=== PATIENT | female | born 1990 | race Native Hawaiian/Other Pacific Islander ===

== ENCOUNTER 2021-12-24 08:13 | Day surgery (SDC) | payer BC ==
[~2021-12-24 08:13] MED LIST: Sensorcaine 0.25% 10 ML ONE
[2021-12-24] MEDS ORDERED: Pepcid 20 MG VIAL IV ONE ×2 (08:25→09:10)
[2021-12-24] MEDS ORDERED: Versed 2 MG/2 ML Injection IV ONE (08:25)
[2021-12-24] MEDS ORDERED: Transderm Scop 1.5MG Patch TOP PRN (08:26)
[2021-12-24] MEDS ORDERED: Reglan 10 MG/2 ML IV ONE (08:26)
[2021-12-24] MEDS ORDERED: Lactated Ringers 1,000 ML IV SCH (08:30)
--- NOTE | 2021-12-24 08:57 | HP ---
DATE OF SURGERY: 12/24/2021 HISTORY OF PRESENT ILLNESS: The patient is a 31-year-old female right upper quadrant pain for six months. Ultrasound no stones. HIDA ejection fraction 21%. Slight nausea. No jaundice. History of fatty liver. PAST MEDICAL HISTORY: Diabetes, hypothyroidism as well as gallbladder disease. PAST SURGICAL HISTORY: Esko teeth removed in the past. MEDICATIONS: Euthyrox, Super B-Complex, vitamin D3, Ozempic. ALLERGIES: NKDA. FAMILY HISTORY: Hypothyroidism, hypertension, diabetes. SOCIAL HISTORY: Denies smoking. Occasional alcohol use. REVIEW OF SYSTEMS: Fourteen systems reviewed. No chest pain or palpitations. Other systems negative or noncontributory as above and per preadmission questionnaire. PHYSICAL EXAMINATION: GENERAL: No acute distress. HEENT: Sclerae nonicteric. NECK: No JVD. CHEST: Equal excursion, nonlabored breathing. CVS: Regular rate and rhythm. ABDOMEN: Soft. No peritoneal signs. Mild right upper quadrant tenderness. EXTREMITIES: No significant edema. NEURO: Alert, oriented, moving extremities symmetrically. SKIN: Dry. PSYCH: Appropriate mood and affect. IMPRESSION: Acute exacerbation of chronic cholecystitis, symptomatic biliary dyskinesia. I feel the patient will benefit from cholecystectomy. Risks and benefits explained in detail. Shown the gallbladder pamphlet. Risks explained in detail including but not limited to bleeding or infection, risk of trocar injury or hernia, risk of bowel, bladder or blood vessel injury, risk of bile leak, bile duct injury, retained stone or sludge possibly requiring further procedure either open or ERCP, general risk of anesthesia, deep venous thrombosis, pulmonary embolism, pneumonia, perioperative risk of aches, pains, bloating, constipation and/or loose stools possibly even chronic in nature, possibility of no improvement of preoperative symptoms possibly requiring further work up, endoscopy or other studies or procedures. She understands and agrees to the planned procedure, will proceed with laparoscopic cholecystectomy with possible open as an outpatient.
[2021-12-24] MEDS ORDERED: MEFOXIN 2 GM PREMIX** 2 GM/50 ML ML IV SCH (09:00)
[2021-12-24] MEDS ORDERED: Versed 2 MG/2 ML Injection ONE (09:10)
[2021-12-24] MEDS ORDERED: MEFOXIN 2 GM PREMIX** 2 GM/50 ML ML IV ONE (09:10)
[2021-12-24] MEDS ORDERED: Lactated Ringers 1,000 ML IV ONE ×2 (09:11→11:48)
[2021-12-24] MEDS ORDERED: Transderm Scop 1.5MG Patch ONE ×2 (09:11→09:35)
[2021-12-24] MEDS ORDERED: Reglan 10 MG/2 ML ONE (09:11)
[2021-12-24] MEDS ORDERED: Zemuron 100 MG/10 ML ONE ×2 (10:14→12:28)
[2021-12-24] MEDS ORDERED: Quelicin Fliptop 200 MG/10 ML ONE (10:14)
[2021-12-24] MEDS ORDERED: Decadron 4 MG INJ ONE (10:14)
[2021-12-24] MEDS ORDERED: Zofran 4 MG/2 ML VIAL ONE ×2 (10:14→13:24)
[2021-12-24] MEDS ORDERED: DIPRIVAN 200 MG/20 ML IV ONE (10:14)
[2021-12-24] MEDS ORDERED: Xylocaine-Mpf 2% 5 Ml Vial ONE (10:14)
[2021-12-24] MEDS ORDERED: SUBLIMAZE 100 MCG/2 ML ONE ×3 (10:15→12:49)
[2021-12-24] MEDS ORDERED: DEXMEDETOMIDINE 80 MCG/20ML-NS IV ONE (10:17)
[2021-12-24] MEDS ORDERED: Pre-Attached Lta Kit TP ONE (10:24)
[2021-12-24] MEDS ORDERED: OFIRMEV 100 ML IV ONE (11:30)
[2021-12-24] MEDS ORDERED: TRANDATE 20 MG/4 ML SYRINGE IV ONE (12:09)
[2021-12-24] MEDS ORDERED: BRIDION 200MG/2ML IV ONE (12:21)
[2021-12-24] MEDS ORDERED: MORPHINE SULFATE 4 MG INJ IV PRN (13:22)
[2021-12-24] MEDS ORDERED: Zofran 4 MG/2 ML VIAL IV ONE (13:24)
[2021-12-24] MEDS ORDERED: MORPHINE SULFATE 4 MG INJ ONE (13:25)
[2021-12-24 13:32] VITALS: O2SAT 97
--- NOTE | 2021-12-24 13:43 | OP ---
SURGERY DATE/TIME: 12/24/2021 1130 PREOPERATIVE DIAGNOSIS: Acute exacerbation of chronic cholecystitis, symptomatic biliary dyskinesia. POSTOPERATIVE DIAGNOSIS: Acute exacerbation of chronic cholecystitis, symptomatic biliary dyskinesia. PROCEDURE: Laparoscopic cholecystectomy. SURGEON: Dr. Angel Yeager. ANESTHESIA: General. ESTIMATED BLOOD LOSS: Minimal. INDICATIONS: As noted above. Risks and benefits explained in detail but not limited to and consent obtained. DESCRIPTION OF PROCEDURE AND FINDINGS: The patient was taken to the operating room. General anesthesia induced. Abdomen prepped and draped in usual sterile fashion. After official time out and no disagreement with planned procedure, An 11 mm bladeless port and camera were inserted without difficulty but giving her thickness the port barely reached the fascia and sliding down a little bit because of her girth. I was able to get the port in. Pneumoperitoneum accomplished. Which we are waiting for some tubing. Two - 5 mm right upper quadrant ports, 5 mm epigastric port. The gallbladder was retracted, had some mild chronic inflammation. Dissection carried posterior, lateral to anterior fashion slowly and carefully cystic duct infundibular junction slowly and carefully well skeletonized until critical view obtained anteriorly and posteriorly. Once this is accomplished, cystic duct and cystic artery clipped x3 and divided in the usual fashion. The gallbladder is slowly and carefully dissected free from its attachments. Just prior to releasing from final attachments to anterior edge of liver, the liver bed re-inspected. Clips noted in place in cystic duct and cystic artery stumps. No signs of any active bleeding or bile leakage. It was felt there is no benefit from drain placement. Gallbladder released from final attachments, placed in a bag and pulled up with the fascia spread slightly the umbilical site incision allowing the gallbladder to be pulled up to decompress the bile. Gallbladder and bag pulled free and passed off. Fascia defect closed with puncture closure device with #1 Vicryl under direct vision of the camera. Liver bed re-inspected. Good hemostasis noted. Irrigation accomplished lateral to the liver irrigating clear. Pneumoperitoneum decompressed. Skin incision closed with 4-0 Vicryl. The 12/11 fascial defect closed with puncture closure device #1 Vicryl. Steri-Strips and sterile dressing applied. 0.25% Marcaine local injected along the skin incision fascial defect. The patient tolerated the procedure well. Findings discussed with the family out in the waiting area.
[2021-12-24 13:56] VITALS: BP 110/78; PULSE 85
== END 2021-12-24 14:10 | disposition home or self-care (01) ==
LOC: SDC 08:13
PROVIDERS: ATTEND Surgery
DX: K81.1 Chronic cholecystitis (principal); E11.9 Type 2 diabetes mellitus without complications
CPT/HCPCS: 81025; 82947; J0330; J0694; J1100; J2250; J2270; J2405; J2704; J3010; A9270-GY

== ENCOUNTER 2022-08-12 14:47 | Emergency (ER) | payer BC ==
[2022-08-12 15:28] VITALS: O2SAT 98
--- NOTE | 2022-08-12 15:33 | ERPHSYRPT ---
- History of Present Illness Source: patient Exam Limitations: no limitations Patient Subjective Stated Complaint: C/O intermittent vaginal bleeding that started at 2pm yesterday. She had one episode around 2pm yesterday and then another episode around 2pm today. Bleeding is bright red, small amount. No pain or cramping today. Patient states mild cramping yesterday to LLQ of abdomen. Patient had sexual intercoarse on Friday afternoon. Triage Nursing Assessment: Patient ambulated back to ER without difficulties. She is alert and oriented. No SOB. OB doctor is Dr. Martines. Heart Rate obtained with hand held: rate 188. Physician History: [id number] WF 19 wks w vaginal spotting x 1 day. Pt denies supra-pubic pain/N/V/fever/dysuria/hematuria. Timing/Duration: yesterday Activites at Onset: sexual activity (Had intercourse 2 days ago) Pain Radiation: none Severity of Pain-Max: none Severity of Pain-Current: none Modifying Factors: Improves With: nothing Associated Symptoms: denies symptoms Allergies/Adverse Reactions: No Known Drug Allergies Allergy (Verified 08/12/22 15:11) Home Medications: Levothyroxine Sodium [Euthyrox] 75 mcg PO DAILY 11/27/21 [History] Vit 93/Iron Fum/Folic [ Formula Tablet] 1 tab PO DAILY 08/12/22 [History] Hx Tetanus, Diphtheria Vaccination/Date Given: Yes Hx Influenza Vaccination/Date Given: Yes Hx Pneumococcal Vaccination/Date Given: No Travel Risk - International Travel Have you traveled outside of the country in past 3 weeks: No - Coronavirus Screening Are you exhibiting any of the following symptoms?: No Close contact with a COVID-19 positive Pt in past 14-21 Days: No - Vaccine Status Have you recieved a Covid-19 vaccination: Yes Candy Puller: [place] - Vaccination Dates Date of 2cond Vaccination (if applicable): ? - Review of Systems Constitutional: No Symptoms Eyes: No Symptoms Ears, Nose, & Throat: No Symptoms Respiratory: No Symptoms Cardiac: No Symptoms Abdominal/Gastrointestinal: No Symptoms Musculoskeletal: No Symptoms Skin: No Symptoms Neurological: No Symptoms Psychological: No Symptoms Endocrine: No Symptoms Hematologic/Lymphatic: No Symptoms Immunological/Allergic: No Symptoms - Past Medical History Pertinent Past Medical History: Yes Neurological History: No Pertinent History ENT History: No Pertinent History Cardiac History: No Pertinent History Respiratory History: No Pertinent History Endocrine Medical History: Diabetes Type II, Hypothyroidism Musculoskeletal History: No Pertinent History GI Medical History: Gallbladder Disease History: No Pertinent History Psycho-Social History: No Pertinent History Female Reproductive Disorders: No Pertinent History - Past Surgical History Past Surgical History: Yes Neuro Surgical History: No Pertinent History Cardiac: No Pertinent History Respiratory: No Pertinent History Gastrointestinal: Cholecystectomy Genitourinary: No Pertinent History Musculoskeletal: No Pertinent History Female Surgical History: No Pertinent History Other Surgical History: oral surgery wisdom teeth removal - Social History Smoking Status: Never smoker Exposure to second hand smoke: No Drug Use: none Patient Lives Alone: No - Female History Hx Last Menstrual Period: End march Hx Now: Yes Gestational Age: 19 w & 4d - Nursing Vital Signs Nursing Vital Signs: Initial Vital Signs Pulse Rate 105 H 08/12/22 15:10 Respiratory Rate 15 08/12/22 15:10 Blood Pressure 115/79 08/12/22 15:10 O2 Sat by Pulse Oximetry 97 08/12/22 15:10 Pain Scale Pain Intensity 0 Mildly tachy - Physical Exam General Appearance: no apparent distress Eye Exam: PERRL/EOMI, eyes nml inspection Ears, Nose, Throat Exam: normal ENT inspection, TMs normal, pharynx normal, moist mucous membranes Neck Exam: normal inspection, non-tender, supple, full range of motion, No meningismus, No mass, No Brudzinski, No Kernig's, No carotid bruit Respiratory Exam: normal breath sounds, lungs clear, airway intact Cardiovascular Exam: murmur (2/6 CHRISTEN), tachycardia (Mild) Gastrointestinal/Abdomen Exam: soft, normal bowel sounds, No tenderness Back Exam: normal inspection, normal range of motion, No CVA tenderness, No vertebral tenderness Extremity Exam: normal inspection, normal range of motion Neurologic Exam: alert, oriented x 3, cooperative, caser up II-XII nml as tested, normal mood/affect, nml cerebellar function, nml station & gait, sensation nml Skin Exam: normal color, warm, dry Lymphatic Exam: No adenopathy SpO2 Interpretation: normal SpO2: 98 O2 Delivery: Room Air - Course Nursing assessment & vital signs reviewed: Yes - Radiology Ultrasound Exam Other Ultrasound: Other (Normal 19wk IUP per tech/IUP in breech position/FHR 161/) Ordered Tests: Active Orders 24 hr Category Date Time Status OB LIMITED [US] Stat Exams 08/12/22 15:18 Completed UA W/RFX UR CULTURE Stat Lab 08/12/22 15:05 Completed Lab/Rad Data: Laboratory Results 08/12/22 Range/Units 15:05 Urine Color Yellow (Yellow) Urine Appearance Clear (Clear) Urine pH 5.5 (4.6-8.0) Ur Specific Albright >=1.030 A (1.005-1.030) Urine Protein Trace A (Negative) Urine Glucose (UA) Negative (Negative) mg/dL Urine Ketones Negative (Negative) Urine Blood Negative (Negative) Urine Nitrite Negative (Negative) Urine Bilirubin Negative (Negative) Urine Urobilinogen 1.0 A (0.2) mg/dL Ur Leukocyte Esterase Negative (Negative) U Hyaline Cast (Auto) NONE SEEN (0-2) /LPF Urine Microscopic RBC 0-2 (0-5) /HPF Urine Microscopic WBC 0-2 (0-5) /HPF Ur Epithelial Cells None Seen (None Seen) /HPF Urine Bacteria None Seen (None Seen) /HPF Urine Culture Reflexed NO (NO) - Progress Progress Note: 08/12/22 18:34 Nursing note and vital signs reviewed No food or housing insecurities noted US result per tech and Dr. Lozada read later reviewed/Results shared w pt Pt in NAD and discharged to f/u w Dr. Martines 08/12/22 18:36 Counseled pt/family regarding: diagnosis, need for follow-up, rad results Medical Desision Making - Diagnostic Testing Radiological Interpretation: Reviewed by me, Discussed w/ radiologist - Risk of complications Low Risk: Low risk of morbidity from additional dx testing or treatment - Departure Departure Disposition: Home Clinical Impression: Vaginal bleeding before 22 weeks gestation Condition: Stable Critical Care Time: No Referrals: LIA MARTINES MD [Primary Care Provider] - Follow up/PCP as directed Instructions: Bleeding in Early (DC) Additional Instructions: Follow up with Dr. Martines Return to ER as needed
[2022-08-12 16:11] LABS: ADD URINE CULTURE? NO (NO); Appearance Clear (Clear); Bacteria None Seen /HPF (None Seen); Bilirubin Negative (Negative); Blood Negative (Negative); Epithelial Cells None Seen /HPF (None Seen); Glucose, Urine Negative (Negative); Hyaline Casts NONE SEEN /LPF (0-2); Ketones Negative (Negative); Leukocyte Esterase Negative (Negative); Nitrite Negative (Negative); Ph 5.5 (4.6-8.0); Protein,Urine Dip Trace (Negative); RBC 0-2 /HPF (0-5); Specific Gravity >=1.030 (1.005-1.030); WBC 0-2 /HPF (0-5)
[2022-08-12 16:15] VITALS: BP 123/76; PULSE 97
--- NOTE | 2022-08-12 16:32 | XRAY ---
Indication: Vaginal bleeding. Cervical length and GEORGIE. Limited OB ultrasound demonstrates single intrauterine currently in breech presentation with heart rate 161 BPM. Four-quadrant GEORGIE is 10.0 cm. Cervical length is 4.3 cm.
== END 2022-08-12 16:20 | disposition home or self-care (01) ==
LOC: ED 14:47
DX: O20.9 Hemorrhage in early pregnancy, unspecified (principal); Z3A.19 19 weeks gestation of pregnancy; O24.112 Pre-existing type 2 diabetes mellitus, in pregnancy, second trimester; Z79.899 Other long term (current) drug therapy
CPT/HCPCS: 76815; 81001; 99283

== ENCOUNTER 2022-08-15 14:36 | Observation (INO) | payer BC ==
[2022-08-15 16:11] VITALS: BP 116/67; PULSE 108; O2SAT 97
[2022-08-15 18:36] LABS: CHLAMYDIA DNA NOT DETECTED (NEGATIVE); GC DNA Probe NOT DETECTED (NEGATIVE)
== END 2022-08-15 16:52 | disposition home or self-care (01) ==
LOC: ED 14:36 → OB 14:50 → UNDOADMOB 14:50 → UNDODISOB 16:52
PROVIDERS: ADMIT Family Medicine; ATTEND Family Medicine
DX: Z34.02 Encounter for supervision of normal first pregnancy, second trimester (principal); Z3A.20 20 weeks gestation of pregnancy
CPT/HCPCS: 87491; 87591; 99281; G0378; G0379

== ENCOUNTER 2023-01-01 08:05 | Inpatient (IN) | payer BC ==
[2023-01-01] MEDS ORDERED: PITOCIN 30 UNITS/ LR 500 ML 30 UNITS/500 ML PLAST..BAG IV SCH (14:00)
[2023-01-01] MEDS ORDERED: Zofran 4 MG/2 ML VIAL IV PRN (17:00)
[2023-01-01] MEDS ORDERED: BRETHINE 1 MG/ML SQ PRN (17:00)
[2023-01-01] MEDS ORDERED: STADOL 2 MG IV PRN (17:00)
[2023-01-01] MEDS ORDERED: Nubain 10 MG/ML IV PRN (17:00)
[2023-01-01] MEDS ORDERED: TYLENOL EXTRA STRENGTH 500 MG PO PRN (17:00)
[2023-01-01 17:58] LABS: Absolute Neutrophil Ct (ANC) 6.07 x10^3/uL (1.4-6.9); BASOPHIL % 0.1 % (0.0-0.4); Basophil (Absolute #) 0.01 x10^3/uL (0-0.4); Eosinophil (Absolute #) 0.08 x10^3/uL (0-0.5); Hematocrit 37.3 % (35-47); Hemoglobin 12.1 g/dL (12.0-16.0); IMMATURE GRAN # 0.04 x10^3u/L (0.00-0.03); IMMATURE GRAN % 0.5 % (0.00-0.4); Lymphocyte (Absolute #) 1.31 x10^3/uL (1.0-4.6); Lymphocytes % 16.2 % (24.0-44.0); Mean Cell Volume 78.5 fL (78-100); Mean Corpuscular Hemoglobin 25.5 pg (26-32); Mean Corpuscular Hgb Concent. 32.4 g/dL (32-36); Mean Platelet Volume 11.7 fL (7.5-11.0); Monocyte (Absolute #) 0.59 x10^3/uL (0.0-1.3); Monocytes % 7.3 % (0.0-12.0); Neutrophil % 74.9 % (36.0-66.0); Platelet Count 233 x10^3/uL (150-450); Red Blood Count 4.75 x10^6/uL (4.1-5.4); Red Cell Distribution Width 15.1 % (11.5-14.0); White Blood Count 8.1 x10^3/uL (4.0-10.5)
[2023-01-01] MEDS: CYTOTEC PO SCH ×3 (18:12→22:09)
[2023-01-01 18:19] LABS: Amphetamine,Urine NEGATIVE (NEGATIVE); Barbiturate,Urine NEGATIVE (NEGATIVE); Benzodiazepine,Urine NEGATIVE (NEGATIVE); Cocaine,Urine NEGATIVE (NEGATIVE); Methadone,Urine NEGATIVE (NEGATIVE); Opiate,Urine NEGATIVE (NEGATIVE); PCP,Urine NEGATIVE (NEGATIVE); THC,Urine NEGATIVE (NEGATIVE)
[2023-01-01 18:35] LABS: ABO TYPING O; Antibody Screen NEGATIVE (NEGATIVE); RH TYPING POSITIVE
[2023-01-01] MEDS: Glucophage 500 MG PO SCH (21:37)
[2023-01-02] MEDS: CYTOTEC PO SCH ×3 (00:07→04:00)
[2023-01-02] MEDS ORDERED: FENTANYL 2 MCG-BUPIV 0.125%-NS 250 ML Epidur 250 ML EPIDURAL SCH (06:00)
[2023-01-02] MEDS ORDERED: Lactated Ringers 1,000 ML IV ONE (06:00)
[2023-01-02] MEDS ORDERED: PITOCIN 30 UNITS/ LR 500 ML 30 UNITS/500 ML PLAST..BAG IV SCH (06:00)
[2023-01-02] MEDS ORDERED: Ephedrine Sulfate 50 MG/ML IV PRN (06:00)
[2023-01-02] MEDS: Lactated Ringers 1,000 ML IV SCH ×2 (06:09→13:07)
[2023-01-02] MEDS: Glucophage 500 MG PO SCH ×2 (07:58→22:33)
[2023-01-02] MEDS: SYNTHROID 125 MCG PO SCH (07:58)
[2023-01-02] MEDS ORDERED: Adacel Vial IM ONE ×2 (09:00→20:00)
[2023-01-02] MEDS ORDERED: LANSINOH 40 GM TOP PRN (12:00)
[2023-01-02] MEDS ORDERED: Dulcolax 10 MG SUPP PR PRN (12:00)
[2023-01-02] MEDS ORDERED: NORCO 5/325 MG PO PRN (12:00)
[2023-01-02] MEDS ORDERED: TYLENOL EXTRA STRENGTH 500 MG PO PRN (12:00)
[2023-01-02] MEDS ORDERED: CORTISONE 1% CREAM TP PRN (12:00)
[2023-01-02] MEDS ORDERED: Mylicon 80MG PO PRN (12:00)
[2023-01-02] MEDS ORDERED: XYLOCAINE 1% HCL 20 ML MDV IJ PRN (19:00)
[2023-01-02] MEDS ORDERED: XYLOCAINE 2%/Epi 1:200000 20ML VIAL MPF ONE (19:50)
[2023-01-02] MEDS ORDERED: XYLOCAINE 1% HCL 20 ML MDV ONE (19:51)
[2023-01-02] MEDS ORDERED: FERREX 150 PO SCH (22:00)
[2023-01-03] MEDS: Dermoplast Spray TP PRN (00:23)
[2023-01-03] MEDS: TUCKS TP PRN ×3 (00:23→19:06)
[2023-01-03] MEDS: MOTRIN 400 MG PO PRN ×3 (03:06→16:57)
[2023-01-03 04:47] LABS: Absolute Neutrophil Ct (ANC) 8.26 x10^3/uL (1.4-6.9); BASOPHIL % 0.1 % (0.0-0.4); Basophil (Absolute #) 0.01 x10^3/uL (0-0.4); Eosinophil % 0.7 % (0.00-5.0); Eosinophil (Absolute #) 0.07 x10^3/uL (0-0.5); Hematocrit 32.9 % (35-47); Hemoglobin 10.8 g/dL (12.0-16.0); IMMATURE GRAN # 0.05 x10^3u/L (0.00-0.03); IMMATURE GRAN % 0.5 % (0.00-0.4); Lymphocyte (Absolute #) 0.92 x10^3/uL (1.0-4.6); Mean Cell Volume 78.3 fL (78-100); Mean Corpuscular Hemoglobin 25.7 pg (26-32); Mean Corpuscular Hgb Concent. 32.8 g/dL (32-36); Mean Platelet Volume 12.1 fL (7.5-11.0); Monocyte (Absolute #) 0.95 x10^3/uL (0.0-1.3); Monocytes % 9.3 % (0.0-12.0); Neutrophil % 80.4 % (36.0-66.0); Platelet Count 208 x10^3/uL (150-450); Red Cell Distribution Width 15.5 % (11.5-14.0); White Blood Count 10.3 x10^3/uL (4.0-10.5)
[2023-01-03] MEDS: Docusate Sodium 100 MG PO SCH ×3 (06:32→21:58)
[2023-01-03] MEDS: SYNTHROID 125 MCG PO SCH (07:08)
[2023-01-03] MEDS: Glucophage 500 MG PO SCH ×2 (09:58→16:47)
[2023-01-03] MEDS: THERAGRAN MULTIVITAMIN PO SCH (10:01)
[2023-01-04] MEDS: MOTRIN 400 MG PO PRN ×2 (01:24→14:41)
[2023-01-04 06:01] VITALS: PULSE 89; RESP 18
[2023-01-04] MEDS: SYNTHROID 125 MCG PO SCH (07:53)
[2023-01-04] MEDS: THERAGRAN MULTIVITAMIN PO SCH (07:53)
[2023-01-04] MEDS: Glucophage 500 MG PO SCH (07:54)
[2023-01-04] MEDS: Dermoplast Spray TP PRN (09:54)
[2023-01-04] MEDS: TUCKS TP PRN (09:55)
[2023-01-04 10:12] VITALS: BP 140/81; TEMP 96.8; O2SAT 99
--- NOTE | 2023-01-04 10:29 | PCM.DS ---
Discharge Summary Date of Admission: 01/02/23 08:05 Admitting Physician: LIA MARTINES Consults: Consults on Case 01/02/23 06:00 Notify Anesthesia Provider PRN 01/04/23 09:00 Navigation ONCE Primary Care Provider: LIA MARTINES Allergies Allergies No Known Drug Allergies Allergy (Verified 01/01/23 18:05) Hospital Summary - Hospital Course Hospital Course: patient had vaginal delivery via induction at 39wks, second degree perineal repair from episiotomy at delivery. no complications. - Vitals & Intake/Output Vital Signs: Vital Signs Temperature 96.8 F 01/04/23 08:00 Pulse Rate 89 01/04/23 08:00 Respiratory Rate 18 01/04/23 08:00 Blood Pressure 140/81 01/04/23 08:00 O2 Sat by Pulse Oximetry 99 01/04/23 08:00 Intake & Output: Intake & Output 01/01/23 01/02/23 01/03/23 01/04/23 11:59 11:59 11:59 11:59 Intake Total 750 1550 100 Output Total 972 Balance 750 578 100 Weight 142 kg - Lab Result Diagrams: 01/03/23 04:42 Lab Results-Last 24 Hrs: Lab Results-Last 24 Hours 01/03/23 01/03/23 01/04/23 Range/Units 16:45 22:17 08:00 POC Glucometer 89 84 117 H (74 to 106) mg/dL Micro Results-Entire Visit: Accuchecks Date 01/04/23 Date 01/03/23 Time 08:00 Time 16:46 Discharge Exam General Appearance: no apparent distress Neurologic Exam: alert Respiratory Exam: normal breath sounds, lungs clear, No respiratory distress Cardiovascular Exam: regular rate/rhythm, normal heart sounds Gastrointestinal/Abdomen Exam: soft, No tenderness, No mass Extremity Exam: normal inspection Skin Exam: normal color, warm, dry Final Diagnosis/Problem List - Final Discharge Diagnosis/Problem (1) Normal vaginal delivery Current Visit: Yes Status: Acute Code(s): O80 - ENCOUNTER FOR FULL-TERM UNCOMPLICATED DELIVERY (2) Second degree perineal laceration during delivery Current Visit: Yes Status: Acute Code(s): O70.1 - SECOND DEGREE PERINEAL LACERATION DURING DELIVERY (3) Type 2 diabetes mellitus Current Visit: Yes Status: Acute (4) Hypothyroidism Current Visit: Yes Status: Acute Code(s): E03.9 - HYPOTHYROIDISM, UNSPECIFIED - Discharge Disposition: Home, Self-Care Condition: Stable Prescriptions: Continue Levothyroxine Sodium [Euthyrox] 125 mcg PO DAILY Vit 93/Iron Fum/Folic [ Formula Tablet] 1 tab PO DAILY Docusate Sodium 100 mg PO BID Metformin HCl 500 mg [Glucophage 500 MG] 500 mg PO BID Discontinued Aspirin EC 81 mg [Ecotrin 81 mg] 81 mg PO DAILY Ferrous Sulfate 325 mg [Feosol 325 mg] 325 mg PO BID Follow up with: LIA MARTINES MD [Primary Care Provider] - 6 weeks
== END 2023-01-04 17:45 | disposition home or self-care (01) | DRG 807 ==
LOC: OB 08:05 → OBSVTOIN 01-02 08:05 → INTOOBSV 01-02 08:09 → OBSVTOIN 01-02 08:09
PROVIDERS: ADMIT Family Medicine; ATTEND Family Medicine
PROC: 10E0XZZ Delivery of Products of Conception, External Approach (ICD-10-PCS; principal; 2023-01-02)
PROC: 0KQM0ZZ Repair Perineum Muscle, Open Approach (ICD-10-PCS; 2023-01-02)
DX: O70.1 Second degree perineal laceration during delivery (principal); Z37.0 Single live birth; Z3A.39 39 weeks gestation of pregnancy; O24.429 Gestational diabetes mellitus in childbirth, unspecified control; E03.9 Hypothyroidism, unspecified; Z20.828 Contact with and (suspected) exposure to other viral communicable diseases
CPT/HCPCS: 36415; 80307; 82947; 85025; 86850; 86900; 86901; G0378; G0379; J2590; A9270-GY